=== PATIENT | female | born 1950 | race Caucasian/White ===

== ENCOUNTER 2016-09-23 13:23 | Emergency (ER) | payer SELFPAY ==
[~2016-09-23] VITALS: Ht 154.9 cm; Wt 67.6 kg
[2016-09-23 13:55] VITALS: BP 118/70; PULSE 82; RESP 16; TEMP 97.2; O2SAT 98
--- NOTE | 2016-09-23 14:00 | NUR ---
Patient triaged and placed in waiting room. VSS and patient appears in no acute distress at this time. Accompanied by SELF, awaiting available bed, and MD notified of need for MSE.
--- NOTE | 2016-09-23 14:35 | NUR ---
Pt states having L shoulder pain since Saturday after "a headboard fell on my shoulder while moving boxes". Pt states has taken Tylenol without pain relief. Pt states aching pain, pain radiates down to L forearm, pain scale 9/10. Pt states pain worsens when rotating L shoulder. Pt denies any other complaints. Addendum: 09/23/16 at 1455 by RADHA Pt ambulated on her own, steady gait, AAOx4.
--- NOTE | 2016-09-23 14:36 | NUR ---
ER Dr. Comer at bedside examining patient.
--- NOTE | 2016-09-23 15:10 | NUR ---
Splint placed by and ROBEL velez, pt tolerated well. Addendum: 09/23/16 at 1539 by LUISEJonnathan Sling placed by , not splint.
[2016-09-23] MEDS ORDERED: KETOROLAC TROMETHAMINE 60 MG/2 ML VIAL IM ONE (15:15)
--- NOTE | 2016-09-23 15:20 | NUR ---
Pt stable, no signs of distress noted
[2016-09-23 15:34] VITALS: BP 117/79; PULSE 74; RESP 16; TEMP 97.9; O2SAT 98
--- NOTE | 2016-09-23 15:34 | NUR ---
Patient given written and verbal discharge instructions and verbalizes understanding. ER MD discussed with patient the results and treatment provided. Patient in stable condition. ID arm band removed. Rx of flexaril, naprosyn given. Patient educated on pain management and to follow up with PMD. Pain Scale 3/10. Opportunity for questions provided and answered.
== END 2016-09-23 15:34 | disposition home or self-care (01) ==
LOC: SED 13:23
DX: S43.402A Unspecified sprain of left shoulder joint, initial encounter (principal); W17.89XA Other fall from one level to another, initial encounter; Y93.89 Activity, other specified; Y99.8 Other external cause status; Y92.89 Other specified places as the place of occurrence of the external cause
CPT/HCPCS: 73030; 96372; 99284; J1885

== ENCOUNTER 2017-02-11 10:16 | Emergency (ER) | payer SELFPAY ==
[~2017-02-11] VITALS: Ht 154.9 cm; Wt 72.6 kg
[2017-02-11 10:20] VITALS: BP_SYST 150
[2017-02-11] MEDS ORDERED: ONDANSETRON 4 MG ODT TAB PO ONE (10:45)
[2017-02-11 10:46] LABS: BILIRUBIN,URINE NEGATIVE (NEGATIVE); BLOOD, URINE 1+ (NEGATIVE); CLARITY/URINE CLEAR (CLEAR); COLOR,URINE YELLOW (YELLOW); GLUCOSE,URINE NEGATIVE (NEGATIVE); KETONES,URINE TRACE (NEGATIVE); LEUKOCYTE ESTERASE ,URINE NEGATIVE (NEGATIVE); NITRITE, URINE NEGATIVE (NEGATIVE); PH,URINE 5.5 (5.0-8.0); PROTEIN URINE NEGATIVE (NEGATIVE); UROBILINOGEN,URINE 0.2 (0.2-1.0)
[2017-02-11 10:48] LABS: BASOPHILS % (AUTO) 0.4 % (0.0-2.0); EOSINOPHILS % (AUTO) 0.4 % (0.0-4.0); HEMATOCRIT 40.9 % (36-48); HEMOGLOBIN 13.2 g/dL (12.0-16.0); LYMPHOCYTES # (AUTO) 1.2 K/uL (1.0-5.5); LYMPHOCYTES % (AUTO) 12.7 % (20.5-51.5); MEAN CORPUSCULAR HEMOGLOBIN 28 pg (27-31); MEAN CORPUSCULAR HGB CONC 32 % (32-36); MEAN CORPUSCULAR VOLUME 85 fL (79.0-98.0); MONOCYTES # (AUTO) 0.2 K/uL (0.0-1.0); MONOCYTES % (AUTO) 2.4 % (1.7-9.3); NEUTROPHILS # (AUTO) 8.2 K/uL (1.8-7.7); NEUTROPHILS % (AUTO) 84.1 % (40.0-70.0); PLATELET COUNT (AUTO) 320 K/uL (130-430); RED CELL DISTRIBUTION WIDTH 13.2 % (9.0-15.0); WHITE BLOOD COUNT (AUTO) 9.6 K/uL (4.8-10.8)
[2017-02-11 10:58] LABS: CALCIUM 9.8 mg/dL (8.4-11.0); CREATININE 0.95 mg/dL (0.55-1.30)
[2017-02-11 11:02] LABS: ALBUMIN 3.7 g/dL (3.4-4.8); TOTAL BILIRUBIN 0.5 mg/dL (0.0-1.0)
[2017-02-11 11:02] LABS: BACTERIA,URINE RARE /HPF (None Seen); MUCUS,URINE 1+ /LPF (None Seen); WBC,URINE 0-3 /HPF (0-3)
[2017-02-11] MEDS ORDERED: DICYCLOMINE HCL 20 MG/2 ML AMP IM ONE (11:15)
[2017-02-11 11:39] VITALS: BP_SYST 150
== END 2017-02-11 11:39 | disposition home or self-care (01) ==
LOC: SED 10:16
DX: K52.9 Noninfective gastroenteritis and colitis, unspecified (principal)
CPT/HCPCS: 36415; 80053; 81000; 83690; 85025; 96372; 99284; J0500; Q0162